=== PATIENT | male | born 1950 | race Caucasian/White ===

== ENCOUNTER 2019-01-04 12:11 | Outpatient (CLI) | payer OTHER | END 2019-01-04 15:00 | disposition home or self-care (01) | LOC: LAB 12:11 | DX: R97.20 Elevated prostate specific antigen [PSA] (principal) ==

== ENCOUNTER 2019-03-02 07:20 | Outpatient (CLI) | payer OTHER | END 2019-03-02 07:26 | disposition home or self-care (01) | LOC: SONOGRAMA 07:20 | DX: R97.20 Elevated prostate specific antigen [PSA] (principal) ==

== ENCOUNTER 2020-02-06 09:12 | Inpatient (IN) | payer OTHER ==
[~2020-02-06] VITALS: Ht 175.3 cm; Wt 106.6 kg
== END 2020-02-15 12:43 | disposition home or self-care (01) | DRG 707 ==
LOC: ADM 10:00 → EDSTATUS 10:00 → SURH 02-13 07:00 → O/R 02-13 07:16 → SURG 02-13 07:16 → SURH 02-13 10:00 → SURG 02-13 13:04
PROVIDERS: ADMIT Urology; ATTEND Urology
PROC: 0VT00ZZ Resection of Prostate, Open Approach (ICD-10-PCS; 2020-02-13)
PROC: 0TBD0ZX Excision of Urethra, Open Approach, Diagnostic (ICD-10-PCS; 2020-02-13)
PROC: 07TC0ZZ Resection of Pelvis Lymphatic, Open Approach (ICD-10-PCS; principal; 2020-02-13 07:00)
DX: C61 Malignant neoplasm of prostate (principal); C68.0 Malignant neoplasm of urethra; I10 Essential (primary) hypertension; Z20.828 Contact with and (suspected) exposure to other viral communicable diseases